=== PATIENT | female | born 1980 | race Caucasian/White ===

== ENCOUNTER 2019-10-28 16:28 | Outpatient (REF) | payer OTHER, SELFPAY ==
--- NOTE | 2019-10-28 16:03 | PAPFT_PTH ---
PAT[facility]: [id number] AGE/SX: 39/F ROOM: RE10/28/[address]: Marychuy Moore : 1980 BED: DIS: 10/28/2019 SPEC #: [id number] RECD: 10/29/19 12:38 STATUS: SHARON RELaury #: [id number] DIAMANTE: 10/28/19 16:[address]: Marychuy Moore DEPT: [facility] Cytology RECD BY: Gina Esquivel Tissues: 1 - CX/ENDOCX FOR PAP SMEARS Procedures: PAP THIN PREP/[facility] Screening HPV DNA PROBE Comments: [id number] (CHLAMYDIA/GC)
[2019-10-28 21:10] LABS: ALT 32 U/L (14-59); AST 17 U/L (15-37); Albumin 4.1 g/dL (3.4-5.0); Alkaline Phosphatase 61 U/L (46-116); Anion Gap 10.8 mmol/L (3-11); BUN 12 mg/dL (7-18); Bilirubin, Total 0.3 mg/dL (0.2-1.0); CO2 24.2 mmol/L (21.0-32.0); Calculated LDL 72 mg/dL (<100); Chloride 106 mmol/L (98-107); Cholesterol 141 mg/dL (<200); Glucose 93 mg/dL (74-106); HDL Cholesterol 21 mg/dL (40-60); Potassium 3.9 mmol/L (3.5-5.1); Sodium 141 mmol/L (136-145); Total Protein 7.4 g/dL (6.4-8.2); Triglyceride 240 mg/dL (<150)
[2019-10-28 21:13] LABS: Prothrombin Time 9.9 sec (9.3-11.0)
[2019-10-28 21:15] LABS: HCT 45.6 % (36.0-46.0); HGB 15.4 g/dL (12.0-15.5); Mean Corp. HGB Concentration 33.8 g/dL (32.0-36.0); Mean Corpuscular Hemoglobin 29.4 pg (27.0-33.0); Platelet Count 268 x1000/uL (130-400); RBC 5.24 m/cumm (4.00-5.20); RBC Distribution Width 13.2 % (11.7-14.6); White Blood Cell Count 10.33 k/cumm (4.4-10.8)
[2019-10-28 21:56] LABS: Hemoglobin A1C 5.7 % (3.8-5.6)
[2019-10-30 11:11] LABS: HBs Antibody, Qual Negative (See Note); HBs Antibody, Quant <3.1 mIU/mL (See Note); Hepatitis B Core Antibody Negative (Negative); Hepatitis B surface Ag Negative (Negative); Hepatitis C Ab w Rflx HCV PCR Reactive (Negative)
[2019-10-30 11:39] LABS: HIV-1/2 Ag & Ab Screen Negative (Negative)
[2019-10-30 13:52] LABS: Chlamydia Result Negative (Negative); GC Result Negative (Negative)
[2019-11-01 08:53] LABS: HCV RNA Detection Quantitative 0 IU/mL (Undetected)
== END 2019-10-28 16:48 ==
LOC: NCHCN 16:28
PROVIDERS: PCP Nurse Practitioner Family; Visit Provider Nurse Practitioner Family
DX: B19.20 Unspecified viral hepatitis C without hepatic coma (principal); Z00.00 Encounter for general adult medical examination without abnormal findings; Z11.4 Encounter for screening for human immunodeficiency virus [HIV]; Z13.1 Encounter for screening for diabetes mellitus; Z13.220 Encounter for screening for lipoid disorders; Z11.3 Encounter for screening for infections with a predominantly sexual mode of transmission; Z12.4 Encounter for screening for malignant neoplasm of cervix; Z11.51 Encounter for screening for human papillomavirus (HPV)
CPT/HCPCS: 80053; 80061; 85027; 86704; 86706; 86803; 87340; 87389; 87491; 87591; 88142; 83036; 85610; 87522; 87624

== ENCOUNTER 2020-12-14 12:17 | Outpatient (REF) | payer OTHER, SELFPAY ==
[2020-12-14 12:50] LABS: Abs Immature Grans 0.03 10^3/uL (0.0-0.06); Absolute Basophil Count 0.05 10^3/uL (0.0-0.2); Absolute Eosinophil Count 0.18 10^3/uL (0.0-0.7); Absolute Lymphocyte Count 2.54 10^3/uL (1.2-3.4); Absolute Monocyte Count 0.41 10^3/uL (0.1-0.8); Absolute Neutrophil Count 6.07 10^3/uL (1.2-6.7); Basophils % 0.5; Eosinophils % 1.9; HCT 45.3 % (36.0-46.0); HGB 15.5 g/dL (11.2-15.7); Immature Grans % 0.3; Lymphocytes % 27.4; MCHC 34.2 % (32.0-36.0); MCV 87.6 fL (80-95); MPV 9.6 fL (8.0-11.0); Monocytes % 4.4; Neutrophils % 65.5; Nucleated RBC 0 %; Platelet Count 287 10^3/uL (130-400); RBC 5.17 10^6/uL (3.93-5.22); RDW 12.6 % (11.7-14.6); RDW-SD 40.4 fL; WBC 9.28 10^3/uL (4.4-10.8)
[2020-12-14 13:11] LABS: ALT 53 U/L (14-59); AST 25 U/L (15-37); Albumin 4.1 g/dL (3.4-5.0); Alkaline Phosphatase 59 U/L (46-116); Anion Gap 11.7 mmol/L (3-11); BUN 18 mg/dL (7-18); Bilirubin, Total 0.4 mg/dL (0.2-1.0); C-Reactive Protein 0.56 mg/dL (0.0-0.3); CO2 24.3 mmol/L (21.0-32.0); CREATININE 0.8 mg/dL (0.55-1.02); Chloride 102 mmol/L (98-107); Glucose 105 mg/dL (74-106); Potassium 4.3 mmol/L (3.5-5.1); Sodium 138 mmol/L (136-145); TSH (W/Ref FT4) 3.08 uIU/mL (0.36-3.74); Total Protein 7.5 g/dL (6.4-8.2); Uric Acid 5.8 mg/dL (2.6-6.0)
[2020-12-14 17:18] LABS: Calculated LDL 93 mg/dL (<100); Cholesterol 144 mg/dL (<200); HDL Cholesterol 24 mg/dL (40-60); Triglyceride 135 mg/dL (<150)
[2020-12-14 18:42] LABS: ESR 16 mm/hr (<or=20)
[2020-12-14 21:08] LABS: Rheumatoid Factor <8.6 IU/mL (<12.0)
[2020-12-15 09:13] LABS: Cyclic Citrullinated Peptide <2.5 U/mL (<5.0)
[2020-12-15 15:17] LABS: ANA Interpretation Negative (Negative)
== END 2020-12-14 12:18 | disposition home or self-care (01) ==
LOC: NCHCN 12:17
PROVIDERS: PCP Nurse Practitioner Family; Visit Provider Nurse Practitioner Family
DX: Z00.00 Encounter for general adult medical examination without abnormal findings (principal); E66.9 Obesity, unspecified; Z13.220 Encounter for screening for lipoid disorders; M25.50 Pain in unspecified joint; Z13.29 Encounter for screening for other suspected endocrine disorder; R60.9 Edema, unspecified; M25.60 Stiffness of unspecified joint, not elsewhere classified
CPT/HCPCS: 80053; 80061; 85652; 86200; 84443; 84550; 85025; 86038; 86140; 86431

== ENCOUNTER 2022-10-10 17:24 | Outpatient (REF) | payer OTHER, SELFPAY ==
[2022-10-10 21:25] LABS: Abs Immature Grans 0.03 10^3/uL (0.0-0.06); Absolute Basophil Count 0.06 10^3/uL (0.0-0.2); Absolute Lymphocyte Count 3.47 10^3/uL (1.2-3.4); Absolute Monocyte Count 0.69 10^3/uL (0.1-0.8); Basophils % 0.5; Eosinophils % 1.5; HCT 42.6 % (36.0-46.0); HGB 14.7 g/dL (11.2-15.7); Immature Grans % 0.2; Lymphocytes % 28.2; MCH 29.9 pg (27.0-33.0); MCHC 34.5 % (32.0-36.0); MCV 87 fL (80-95); MPV 9.9 fL (8.0-11.0); Monocytes % 5.6; Platelet Count 247 10^3/uL (130-400); RBC 4.91 10^6/uL (3.93-5.22); RDW 12.9 % (11.7-14.6); RDW-SD 40.7 fL; WBC 12.31 10^3/uL (4.4-10.8)
[2022-10-10 21:27] LABS: Absolute Eosinophil Count 0.18 10^3/uL (0.0-0.7); Absolute Neutrophil Count 7.88 10^3/uL (1.2-6.7)
[2022-10-10 21:41] LABS: ALT 40 U/L (14-59); AST 33 U/L (15-37); Albumin 4.2 g/dL (3.4-5.0); Alkaline Phosphatase 57 U/L (46-116); Anion Gap 9.6 mmol/L (3-11); BUN 14 mg/dL (7-18); Bilirubin, Total 0.4 mg/dL (0.2-1.0); CO2 26.4 mmol/L (21.0-32.0); CREATININE 0.8 mg/dL (0.55-1.02); Calcium 9.1 mg/dL (8.5-10.1); Chloride 105 mmol/L (98-107); Estimated GFR 94.28 (mL/min/1.73m2); Glucose 93 mg/dL (74-106); Magnesium 1.8 mg/dL (1.8-2.4); Potassium 3.9 mmol/L (3.5-5.1); Sodium 141 mmol/L (136-145); TSH (W/Ref FT4) 2.73 uIU/mL (0.36-3.74); Total Protein 7.6 g/dL (6.4-8.2)
== END 2022-10-10 17:25 | disposition home or self-care (01) ==
LOC: NCHCN 17:24
PROVIDERS: PCP Nurse Practitioner Family; Visit Provider Nurse Practitioner Family
DX: Z00.00 Encounter for general adult medical examination without abnormal findings (principal)
CPT/HCPCS: 80053; 83735; 84443; 85025

== ENCOUNTER 2024-02-01 17:50 | Outpatient (REF) | payer OTHER, SELFPAY ==
[2024-02-01 21:17] LABS: HCT 44.5 % (36.0-46.0); HGB 15.6 g/dL (11.2-15.7); MCH 30.1 pg (27.0-33.0); MCHC 35.1 % (32.0-36.0); MCV 86 fL (80-95); MPV 10.3 fL (8.0-11.0); Platelet Count 242 10^3/uL (130-400); RBC 5.18 10^6/uL (3.93-5.22); RDW 12.2 % (11.7-14.6); RDW-SD 38.7 fL; WBC 10.89 10^3/uL (4.4-10.8)
[2024-02-01 21:51] LABS: ALT 49 U/L (14-59); AST 25 U/L (15-37); Albumin 4.2 g/dL (3.4-5.0); Alkaline Phosphatase 92 U/L (46-116); Anion Gap 11.3 mmol/L (3-11); BUN 14 mg/dL (7-18); Bilirubin, Total 0.3 mg/dL (0.2-1.0); CO2 23.7 mmol/L (21.0-32.0); CREATININE 0.8 mg/dL (0.55-1.02); Calcium 9.4 mg/dL (8.5-10.1); Chloride 101 mmol/L (98-107); Glucose 310 mg/dL (74-106); Potassium 3.9 mmol/L (3.5-5.1); Sodium 136 mmol/L (136-145); TSH (W/Ref FT4) 3.13 uIU/mL (0.36-3.74)
[2024-02-01 21:53] LABS: Hemoglobin A1C 10.2 % (<5.7)
== END 2024-02-01 17:51 | disposition home or self-care (01) ==
LOC: NCHCN 17:50
PROVIDERS: PCP Nurse Practitioner Family; Visit Provider Family Medicine
DX: E11.9 Type 2 diabetes mellitus without complications (principal); E66.9 Obesity, unspecified; R53.83 Other fatigue
CPT/HCPCS: 80053; 85027; 83036; 84443

== ENCOUNTER 2024-03-11 11:14 | Outpatient (REF) | payer OTHER, SELFPAY ==
[2024-03-11 16:38] LABS: COMMENT (LAB VIEW ONLY) 14.83 mg/dL
[2024-03-11 16:44] LABS: Microalb ug/mg Crea 281.9 ug/mg Cr
== END 2024-03-11 11:15 | disposition home or self-care (01) ==
LOC: NCHCN 11:14
PROVIDERS: PCP Nurse Practitioner Family; Visit Provider Family Medicine
DX: E11.9 Type 2 diabetes mellitus without complications (principal)
CPT/HCPCS: 82043; 82570

== ENCOUNTER 2025-01-20 15:35 | Outpatient (REF) | payer OTHER, SELFPAY ==
--- NOTE | 2025-01-20 10:00 | PAPFT_PTH ---
PATIENT: Dacia Hawley LOC: [facility]#:[id number] AGE/SX: 44/F ROOM: RE01/20/[address]: Sherrie Costa : 1980 BED: DIS: 01/20/2025 SPEC #: [id number] RECD: 01/20/25 18:05 STATUS: SHARON REQ #: [id number] DIAMANTE: 01/20/25 10:[address]: Sherrie Costa DEPT: [facility] Cytology RECD BY: Gina Esquivel ENTERED: 01/20/25 18:05 SP TYPE: PAPFT OTHR DR: Marychuy Moore Tissues: 1 - CX/ENDOCX FOR PAP SMEARS Procedures: PAP THIN PREP/[facility] Screening HPV DNA PROBE Comments: [id number] (HPV 16 & 18/45)
== END 2025-01-20 15:36 | disposition home or self-care (01) ==
LOC: NCHCN 15:35
PROVIDERS: PCP Nurse Practitioner Family; Visit Provider Family Medicine
DX: Z12.4 Encounter for screening for malignant neoplasm of cervix (principal); Z00.00 Encounter for general adult medical examination without abnormal findings
CPT/HCPCS: 88142; 87624

== ENCOUNTER 2025-09-23 09:06 | Outpatient (REF) | payer OTHER, SELFPAY | END 2025-09-23 09:07 | disposition home or self-care (01) | LOC: NCHCN 09:06 | PROVIDERS: PCP Nurse Practitioner Family; Visit Provider Physician Assistant | DX: J02.9 Acute pharyngitis, unspecified (principal) | CPT/HCPCS: 87070 ==